=== PATIENT | female | born 1935 | race Caucasian/White ===

== ENCOUNTER → 2017-04-10 | Outpatient (CLI) | payer MEDICARE ==
--- NOTE | 2017-04-10 15:32 | RAD ---
Left lower extremity venous Doppler ultrasound History: Left leg pain. Comparison: None. Procedure: Color Doppler, spectral Doppler, and grayscale images are obtained with and without compression in the area of the common femoral vein, superficial femoral vein - femoral vein junction, main femoral vein (superficial femoral vein) and popliteal vein. Veins of the proximal calf are suboptimally visualized. Findings: Examination is technically difficult secondary to patient body habitus. There is normal duplex flow, color flow and compressibility of all visualized vein segments. No evidence of deep venous thrombosis is present. Small left Benavides's cyst cyst is seen measuring 2.3 x 1.1 x 0.6 cm. Impression: 1. No evidence of left lower extremity deep venous thrombosis. 2. Small left Benavides's cyst.
== END | disposition home or self-care (01) ==
LOC: US 13:22
PROVIDERS: ATTEND Family Medicine
DX: M71.22 Synovial cyst of popliteal space [Baker], left knee (principal)
CPT/HCPCS: 93971